=== PATIENT | female | born 1995 | race Hispanic/Latino ===

== ENCOUNTER 2017-07-11 10:18 | Observation (INO) | payer MEDICAID ==
[~2017-07-11 10:18] MED LIST: FAMO-136 PO; LEVO500T2 PO
[2017-07-11 12:41] LABS: APPEARANCE,URINE Clear (CLEAR); BILIRUBIN,URINE Negative (NEGATIVE); COLOR,URINE Yellow (YELLOW); GLUCOSE, URINE (UA) Negative (NEGATIVE); KETONES,URINE 40 mg/dL (NEGATIVE); LEUKOCYTE ESTERASE ,URINE Small (NEGATIVE); NITRATE,URINE Negative (NEGATIVE); OCCULT BLOOD,URINE Negative (NEGATIVE); PROTEIN,URINE Negative (NEGATIVE)
[2017-07-11 12:49] LABS: AMPHET/METH SCREEN,URINE NEGATIVE (NEGATIVE); BARBITURATE SCREEN, URINE NEGATIVE (NEGATIVE); BENZODIAZEPINES SCREEN,URINE NEGATIVE (NEGATIVE); CANNABINOID SCREEN,URINE NEGATIVE (NEGATIVE); COCAINE SCREEN,URINE NEGATIVE (NEGATIVE); OPIATE SCREEN,URINE NEGATIVE (NEGATIVE); PHENCYCLIDINE SCREEN,URINE NEGATIVE (NEGATIVE)
[2017-07-11 13:00] LABS: BACTERIA,URINE Moderate /HPF (None Seen); RBC,URINE 0-1 /HPF (0-1)
== END 2017-07-11 14:28 | disposition home or self-care (01) ==
LOC: LDH 10:18
PROVIDERS: ADMIT Obstetrics & Gynecology; ATTEND Obstetrics & Gynecology
DX: O36.8130 Decreased fetal movements, third trimester, not applicable or unspecified (principal); O26.893 Other specified pregnancy related conditions, third trimester; R10.2 Pelvic and perineal pain; Z3A.34 34 weeks gestation of pregnancy
CPT/HCPCS: 76819; 80305; 81001; G0378 ×5; 96360; 96361

== ENCOUNTER 2017-07-18 11:47 | Observation (INO) | payer MEDICAID ==
[~2017-07-18] VITALS: Ht 167.6 cm; Wt 89.8 kg
[2017-07-18] MEDS: LACTATED RINGERS 1000ML 1,000 ML IV SCH ×3 (12:55→17:45)
[2017-07-18 13:20] LABS: APPEARANCE,URINE Cloudy (CLEAR); BILIRUBIN,URINE Negative (NEGATIVE); COLOR,URINE Yellow (YELLOW); GLUCOSE, URINE (UA) Negative (NEGATIVE); KETONES,URINE >=80 mg/dL (NEGATIVE); LEUKOCYTE ESTERASE ,URINE Moderate (NEGATIVE); NITRATE,URINE Negative (NEGATIVE); OCCULT BLOOD,URINE Negative (NEGATIVE); PROTEIN,URINE Negative (NEGATIVE)
[2017-07-18 13:30] LABS: AMPHET/METH SCREEN,URINE NEGATIVE (NEGATIVE); BARBITURATE SCREEN, URINE NEGATIVE (NEGATIVE); BENZODIAZEPINES SCREEN,URINE NEGATIVE (NEGATIVE); CANNABINOID SCREEN,URINE NEGATIVE (NEGATIVE); COCAINE SCREEN,URINE NEGATIVE (NEGATIVE); OPIATE SCREEN,URINE NEGATIVE (NEGATIVE); PHENCYCLIDINE SCREEN,URINE NEGATIVE (NEGATIVE)
[2017-07-18 13:52] LABS: BACTERIA,URINE Many /HPF (None Seen); RBC,URINE None Seen /HPF (0-1); SQUAMOUS EPITHELIAL CELL,UR Many /LPF (0-2)
[2017-07-18] MEDS: AZITHROMYCIN 250 MG TABLET PO SCH (15:55)
[2017-07-18] MEDS: BENZOCAINE/MENTH/CETYLPYRD CL 1 EACH LOZENGE MM PRN ×2 (17:25→19:35)
[2017-07-18] MEDS: OSELTAMIVIR PHOSPHATE 75 MG CAP PO SCH (17:50)
[2017-07-18 17:52] VITALS: BP 109/58
[2017-07-18] MEDS ORDERED: ACETAMINOPHEN EXTRA STRENGTH 500 MG TABLET PO PRN (18:45)
[2017-07-18] MEDS ORDERED: PREN-61 PO (18:46)
[2017-07-18] MEDS ORDERED: GUAI-1123 PO (18:46)
[2017-07-18 19:40] VITALS: BP 106/61
[2017-07-18 23:11] VITALS: BP 96/59
[2017-07-19] MEDS: LACTATED RINGERS 1000ML 1,000 ML IV SCH (02:20)
[2017-07-19 03:29] VITALS: BP 98/60
[2017-07-19 07:59] VITALS: BP 108/51
[2017-07-19] MEDS: OSELTAMIVIR PHOSPHATE 75 MG CAP PO SCH (09:05)
[2017-07-19] MEDS: AZITHROMYCIN 250 MG TABLET PO SCH (10:40)
[2017-07-19 11:50] VITALS: BP 100/57
== END 2017-07-19 15:25 | disposition home or self-care (01) ==
LOC: LDH 11:47 → WSH 17:50
PROVIDERS: ADMIT Obstetrics & Gynecology; ATTEND Obstetrics & Gynecology
DX: O99.89 Other specified diseases and conditions complicating pregnancy, childbirth and the puerperium (principal); M79.1 Myalgia; Z3A.35 35 weeks gestation of pregnancy
CPT/HCPCS: 59025; 80305; 81001; 87804 ×4; 96360; 96361 ×4; G0378 ×29; J7030; J7120